=== PATIENT | male | born 1990 | race Two or more races ===

== ENCOUNTER 2023-12-24 22:45 | Emergency (ER) | payer SELFPAY ==
[~2023-12-24] VITALS: Ht 181.6 cm; Wt 88.2 kg
[2023-12-24 22:50] VITALS: O2SAT 98
[2023-12-25 01:41] VITALS: BP 132/78; PULSE 85; RESP 18; TEMP 98.2; O2SAT 99
[2023-12-25] MEDS ORDERED: BISO5TAB13 MT (02:07)
[2023-12-25] MEDS ORDERED: PROP150T3 PO (02:07)
== END 2023-12-25 02:16 | disposition home or self-care (01) ==
LOC: ER 22:45
DX: I49.9 Cardiac arrhythmia, unspecified (principal)
CPT/HCPCS: 99283

== ENCOUNTER 2024-01-24 09:50 | Emergency (ER) | payer SELFPAY ==
[~2024-01-24] VITALS: Ht 195.6 cm; Wt 80.0 kg
[~2024-01-24 09:50] MED LIST: BISO5TAB13 MT; PROP150T3 PO
[2024-01-24 10:15] VITALS: BP 115/75; PULSE 64; RESP 16; TEMP 98.3; O2SAT 99
[2024-01-24] MEDS ORDERED: PROP150T3 PO (11:31)
[2024-01-24] MEDS ORDERED: BISO5TAB13 MT (11:31)
== END 2024-01-24 11:45 | disposition home or self-care (01) ==
LOC: ER 09:50
DX: Z76.0 Encounter for issue of repeat prescription (principal); Z98.890 Other specified postprocedural states
CPT/HCPCS: 99281

== ENCOUNTER 2024-08-20 15:57 | Emergency (ER) | payer MEDICAID ==
[~2024-08-20] VITALS: Ht 182.9 cm; Wt 80.0 kg
[2024-08-20 15:58] VITALS: O2SAT 97
[2024-08-20 16:08] VITALS: BP 118/78; PULSE 76; RESP 14; TEMP 36.7; O2SAT 98
[2024-08-20] MEDS ORDERED: PROP150T3 PO (17:46)
[2024-08-20] MEDS ORDERED: BISO5TAB13 MT (17:46)
== END 2024-08-20 18:01 | disposition home or self-care (01) ==
LOC: ER 15:57
DX: Z00.8 Encounter for other general examination (principal); Z76.0 Encounter for issue of repeat prescription; Z79.899 Other long term (current) drug therapy; Z98.890 Other specified postprocedural states
CPT/HCPCS: 99281; 99283

== ENCOUNTER 2024-09-17 16:07 | Emergency (ER) | payer MEDICAID, OTHER ==
[~2024-09-17] VITALS: Ht 182.9 cm; Wt 91.0 kg
[2024-09-17 16:21] VITALS: O2SAT 98
[2024-09-17 16:22] VITALS: BP 124/73; PULSE 69; RESP 18; TEMP 36.9; O2SAT 97
[2024-09-17] MEDS ORDERED: PROP150T3 MT (17:29)
[2024-09-17] MEDS ORDERED: BISO5TAB13 MT (17:29)
== END 2024-09-17 17:59 | disposition home or self-care (01) ==
LOC: ER 16:07
DX: Z76.0 Encounter for issue of repeat prescription (principal); Z79.899 Other long term (current) drug therapy; Z98.890 Other specified postprocedural states
CPT/HCPCS: 99281; 99282

== ENCOUNTER 2024-10-15 17:03 | Emergency (ER) | payer OTHER ==
[~2024-10-15] VITALS: Ht 185.4 cm; Wt 80.0 kg
[~2024-10-15 17:03] MED LIST changes: +PROP150T3 MT
[2024-10-15 17:07] VITALS: TEMP 36.7; O2SAT 100
[2024-10-15] MEDS ORDERED: PROP150T3 PO (20:05)
[2024-10-15] MEDS ORDERED: BISO5TAB13 MT (20:05)
[2024-10-15 20:15] VITALS: BP 125/63; PULSE 60; RESP 18; O2SAT 100
== END 2024-10-15 20:17 | disposition home or self-care (01) ==
LOC: ER 17:03
DX: Z76.0 Encounter for issue of repeat prescription (principal); Z79.899 Other long term (current) drug therapy
CPT/HCPCS: 99282

== ENCOUNTER 2024-12-20 08:10 | Emergency (ER) | payer OTHER ==
[~2024-12-20] VITALS: Ht 170.2 cm; Wt 68.0 kg
[~2024-12-20 08:10] MED LIST changes: +PROP150T11 MT; +PROP150T11 PO; -PROP150T3 MT; -PROP150T3 PO
[2024-12-20 08:13] VITALS: O2SAT 100
[2024-12-20] MEDS ORDERED: BISO5TAB13 MT (08:45)
[2024-12-20] MEDS ORDERED: PROP150T11 MT (08:45)
[2024-12-20 08:49] VITALS: BP 111/74; PULSE 68; RESP 16; TEMP 36.7; O2SAT 100
== END 2024-12-20 08:58 | disposition home or self-care (01) ==
LOC: ER 08:10
DX: Z76.0 Encounter for issue of repeat prescription (principal); Z79.899 Other long term (current) drug therapy
CPT/HCPCS: 99282

== ENCOUNTER 2025-02-18 08:15 | Emergency (ER) | payer OTHER ==
[~2025-02-18] VITALS: Ht 175.3 cm; Wt 82.0 kg
[2025-02-18 08:36] VITALS: O2SAT 98
[2025-02-18] MEDS ORDERED: BISO5TAB13 MT (09:09)
[2025-02-18 09:22] VITALS: BP 112/76; PULSE 80; RESP 15; TEMP 36.6; O2SAT 98
== END 2025-02-18 09:24 | disposition home or self-care (01) ==
LOC: ER 08:15
DX: I10 Essential (primary) hypertension (principal); Z76.0 Encounter for issue of repeat prescription; Z79.899 Other long term (current) drug therapy
CPT/HCPCS: 99282

== ENCOUNTER 2025-03-19 06:34 | Emergency (ER) | payer OTHER ==
[~2025-03-19] VITALS: Ht 182.9 cm; Wt 82.0 kg
[2025-03-19] MEDS ORDERED: BISO5TAB13 MT (06:49)
[2025-03-19 06:54] VITALS: O2SAT 98
[2025-03-19 07:12] VITALS: BP 133/60; PULSE 64; RESP 18; TEMP 37.1; O2SAT 99
== END 2025-03-19 07:13 | disposition home or self-care (01) ==
LOC: ER 06:34
DX: Z76.0 Encounter for issue of repeat prescription (principal); I10 Essential (primary) hypertension; Z79.899 Other long term (current) drug therapy
CPT/HCPCS: 99282